=== PATIENT | male | born 1980 | race Caucasian/White ===

== ENCOUNTER 2020-10-16 07:40 | Emergency (ER) | payer OTHER ==
[~2020-10-16] VITALS: Ht 188 cm; Wt 104.3 kg
[~2020-10-16 07:40] MED LIST: Bactrim Ds Tab1 EACH PO; CEPH500 PO; Cephalexin500 MG PO; Cleocin HCl300 MG PO; HYDR120LO TOP; Percocet 5-3251 EACH PO; Prednisone20 MG PO; SULTRIDS PO; Vibramycin100 MG PO
[2020-10-16] MEDS ORDERED: PENVK500 PO (08:15)
== END 2020-10-16 08:20 | disposition home or self-care (01) ==
LOC: ER 07:40
DX: K12.2 Cellulitis and abscess of mouth (principal); F17.210 Nicotine dependence, cigarettes, uncomplicated; Z91.018 Allergy to other foods
CPT/HCPCS: 99282